=== PATIENT | male | born 1985 | race Caucasian/White ===

== ENCOUNTER 2017-07-11 13:08 | Day surgery (SDC) | payer OTHER ==
[2017-07-11 14:16] VITALS: BMI 28.7
[2017-07-11] MEDS ORDERED: PROPOFOL 20 ML ONE (15:05)
[2017-07-11 15:42] VITALS: TEMP 98.2
[2017-07-11 16:42] VITALS: BP 117/69; PULSE 74
--- NOTE | 2017-07-13 11:46 | PATH ---
Surgical Pathology Report Patient Name: SYLVESTER CARBAJAL [facility]. Rec. #: [id number] /Age/Gender: 1985 (Age: 31) / M Account: [id number] Location: [facility]-ENDOSCOPY Taken: 07/11/2017 Received: 07/12/2017 Reported: 07/13/2017 Physicians: Inocente Watson M.D. Specimen(s) Received A: BIOPSY ANTRAL NODULE B: BIOPSY GASTRIC BODY C: BX DISTAL ESOPHAGUS Clinical History Preoperative diagnosis: Helicobacter associated disease, gastritis, epigastric pain Postoperative diagnosis: Irregular Z line, hiatal hernia, erosive nodular gastritis Final Diagnosis A. STOMACH, ANTRAL NODULE, BIOPSY: MODERATE CHRONIC ACTIVE GASTRITIS WITH ULCERATION. NO CARCINOMA OR ADENOMATOUS CHANGE IDENTIFIED. IMMUNOSTAIN FOR H. PYLORI IS POSITIVE (MANY ORGANISMS). B. STOMACH, BODY, BIOPSY: GASTRIC FUNDIC MUCOSA WITH MILD CHRONIC ACTIVE GASTRITIS. IMMUNOSTAIN FOR H. PYLORI IS POSITIVE (MANY ORGANISMS). C. DISTAL ESOPHAGUS, BIOPSY: SQUAMOUS EPITHELIUM WITH NO PATHOLOGIC CHANGES. NO INTESTINAL METAPLASIA IDENTIFIED (NO TIAN'S IDENTIFIED). Electronically Signed Gerardo Downey M.D. Gross Description A. Received in formalin, labeled "biopsy antral nodule" is a kaye, irregular portion of soft tissue measuring 0.3 cm. in greatest dimension. The specimen is submitted in toto in one cassette. B. Received in formalin, labeled "biopsy gastric body" are 2 kaye, irregular portions of soft tissue measuring 0.2 and 0.3 cm. in greatest dimension. The specimens are submitted in toto in one cassette. C. Received in formalin, labeled "biopsy distal esophagus" is a kaye, irregular portion of soft tissue measuring 0.5 cm. in greatest dimension. The specimen is submitted in toto in one cassette. DL07/12/2017 saudi07/12/2017
== END 2017-07-11 16:42 | disposition home or self-care (01) ==
LOC: JASU-ENDO 13:08
PROVIDERS: ATTEND Internal Medicine Gastroenterology
PROC: 0DB68ZX Excision of Stomach, Via Natural or Artificial Opening Endoscopic, Diagnostic (ICD-10-PCS; principal; 2017-07-11 14:30)
DX: K25.9 Gastric ulcer, unspecified as acute or chronic, without hemorrhage or perforation (principal); K44.9 Diaphragmatic hernia without obstruction or gangrene; K29.70 Gastritis, unspecified, without bleeding; K31.7 Polyp of stomach and duodenum
CPT/HCPCS: 88305-TC; 88342-TC

== ENCOUNTER 2018-01-10 07:44 | Day surgery (SDC) | payer OTHER ==
[2018-01-10 09:31] VITALS: BMI 29.2
[2018-01-10 10:32] VITALS: TEMP 97.9
[2018-01-10 11:57] VITALS: BP 131/74; PULSE 69
--- NOTE | 2018-01-11 17:09 | PATH ---
Surgical Pathology Report Patient Name: SYLVESTER CARBAJAL [facility]. Rec. #: [id number] /Age/Gender: 1985 (Age: 32) / M Account: [id number] Location: [facility]-ENDOSCOPY Taken: 01/10/2018 Received: 01/10/2018 Reported: 01/11/2018 Physicians: Mika Brown M.D. Specimen(s) Received BX BODY ERYTHEMA Clinical History Persistent epigastric pain, history of gastric ulcer Postoperative diagnosis: Erythema body Final Diagnosis STOMACH, BODY, BIOPSY: GASTRIC BODY MUCOSA WITH MILD CHRONIC GASTRITIS. IMMUNOHISTOCHEMICAL STAIN FOR H. PYLORI IS NEGATIVE. Electronically Signed Helen Moss M.D. Gross Description Received in formalin, labeled "biopsy erythema body" are 2 kaye, irregular portions of soft tissue measuring 0.4 and 0.7 cm. in greatest dimension. The specimens are submitted in toto in one cassette. /01/10/201801/10/2018
== END 2018-01-10 11:57 | disposition home or self-care (01) ==
LOC: JASU-ENDO 07:44
PROVIDERS: ATTEND Internal Medicine Gastroenterology
PROC: 0DB68ZX Excision of Stomach, Via Natural or Artificial Opening Endoscopic, Diagnostic (ICD-10-PCS; principal; 2018-01-10 09:00)
DX: R10.13 Epigastric pain (principal)
CPT/HCPCS: 88305-TC; 88342-TC